=== PATIENT | female | born 1975 | race American Indian/Alaskan Native ===

== ENCOUNTER 2016-09-17 09:16 | Day surgery (SDC) | payer MEDICAID ==
[2016-09-14 09:50] LABS: Basophils % (Auto) 0.7 % (0.0-1.8); Eosinophils % (Auto) 4.5 % (0.0-4.3); Hematocrit 36.5 % (30.3-42.9); Hemoglobin 11.4 gm/dl (10.1-14.3); Mean Corpuscular HGB Conc 31 % (30-34); Mean Corpuscular Volume 79 fl (79-97); Platelet Count 321 K/mm3 (140-440); Red Blood Count 4.63 M/mm3 (3.65-5.03); White Blood Count 8.2 K/mm3 (4.5-11.0)
[2016-09-14 09:51] LABS: Mean Corpuscular Hemoglobin 25 pg (28-32); Red Cell Distribution Width 22.9 % (13.2-15.2)
--- NOTE | 2016-09-14 13:12 | Anesthesia Consultation ---
Anesthesia Consult and Med Hx Date of service: 09/17/16 - Airway Anesthetic Teeth Evaluation: Good ROM Head & Neck: Adequate Mental/Hyoid Distance: Adequate Mallampati Class: Class II Intubation Access Assessment: Probably Good - Pulmonary Exam CTA: Yes - Cardiac Exam Cardiac Exam: RRR - Pre-Operative Health Status ASA Pre-Surgery Classification: ASA2 Proposed Anesthetic Plan: General Nerve Block: PECS - Pulmonary Hx Smoking: No Hx Sleep Apnea: No (BAYLEE PRE SCREEN LOW RISK) - Cardiovascular System Hx Hypertension: Yes (WITH PREG ONLY) Hx Heart Murmur: Yes (LEAKY HEART VALVE WITH ) - Central Nervous System Hx Back Pain: Yes - Endocrine Hx Renal Disease: No Hx Cirrhosis: No Hx Insulin Dependent Diabetes: No Hx Hypothyroidism: No - Hematic Hx Anemia: Yes - Other Systems Hx Cancer: No Hx Obesity: Yes
[~2016-09-17 09:16] MED LIST: ANCEF/STERILE WATER 2 GM/20 ML IV NR; LACTATED RINGERS 1,000 ML IV SCH; NEURONTIN PO NR; PEPCID PO NR; SUBLIMAZE IV SCH; VERSED IV NR
[2016-09-17] MEDS ORDERED: NACL BACTERIOSTATIC INFILTRATI ONE (10:08)
[2016-09-17] MEDS ORDERED: DIPRIVAN 10 MG/ML IV ONE ×2 (10:16→12:52)
[2016-09-17] MEDS ORDERED: DILAUDID ONE ×2 (10:17→13:01)
[2016-09-17] MEDS ORDERED: XYLOCAINE MPF 2% ONE (11:34)
--- NOTE | 2016-09-17 11:39 | Anesthesia Day of Surgery ---
Anesthesia Day of Surgery - Day of Surgery Patient Examined: Yes Patient H&P Reviewed: Yes Patient is NPO: Yes
[2016-09-17] MEDS ORDERED: ZOFRAN ONE (12:41)
[2016-09-17] MEDS ORDERED: DECADRON ONE (12:41)
[2016-09-17] MEDS ORDERED: NORMODYNE IV ONE (12:53)
[2016-09-17] MEDS ORDERED: NACL 0.9% IR ONE (13:26)
[2016-09-17] MEDS: DILAUDID IV PRN ×2 (14:55→15:15)
[2016-09-17] MEDS ORDERED: VERSED IV ONE (14:56)
[2016-09-17] MEDS ORDERED: DEMEROL ONE (15:01)
[2016-09-17] MEDS ORDERED: DEMEROL IV PRN (15:05)
--- NOTE | 2016-09-17 15:46 | Post Anesthesia Evaluation ---
- Post Anesthesia Evaluation Patient Participated: Yes Airway Patent: Yes Stable Respiratory Function: Yes Nausea/Vomiting: No Temp > 96.8F: Yes Pain Manageable: Yes Adequeate Hydration: Yes Anesthesia Complications: No Block Receding Appropriately: Not Applicable Patient on Ventilator: No
[2016-09-17 17:00] VITALS: BP 124/80
--- NOTE | 2016-09-17 17:37 | Operative Report ---
PREOPERATIVE DIAGNOSIS: Macromastia. POSTOPERATIVE DIAGNOSIS: Macromastia. PROCEDURE: Bilateral reduction mammoplasty. SURGEON: Aj Kiran MD MANAGER ANDROID: Diogenes Godinez CSA. FINDINGS: 1020 gm removed from the right breast, 700 gm removed from the left breast. DESCRIPTION OF PROCEDURE: The patient was brought to the operating room and placed on the table in supine position. Following administration of general anesthesia, bilateral breasts were prepped with Betadine solution, draped in usual sterile manner. A #10 blade scalpel was used to make a circumareolar skin incision followed by de-epithelization of inferior dermal pedicle. Modified Santiago pattern skin markings were incised with scalpel, deepened through subcutaneous fat and breast tissue using the electrocautery. Skin flaps were raised in standard manner as was fashioning of an inferior central mound pedicle. Breast tissue was resected and sent to pathology as specimen. Hemostasis controlled using electrocautery. Skin flaps were closed over 10-mm Bjorn drain using interrupted and running subcuticular 2-0 Monocryl sutures. Mastisol, Steri-Strips, and sterile dressings applied. The patient tolerated the procedure well and returned to recovery room in stable condition. JOB# [id number] FTW/NTS
== END 2016-09-17 16:50 | disposition home or self-care (01) ==
LOC: OR 09:16
PROVIDERS: ATTEND Plastic Surgery
DX: N62 Hypertrophy of breast (principal); I10 Essential (primary) hypertension; D64.9 Anemia, unspecified; E66.9 Obesity, unspecified; Z68.34 Body mass index [BMI] 34.0-34.9, adult; Z98.51 Tubal ligation status; Z83.3 Family history of diabetes mellitus; Z82.3 Family history of stroke; Z82.49 Family history of ischemic heart disease and other diseases of the circulatory system
CPT/HCPCS: 19318; 36415; 84703; 85025; 88305; J0690; J1100; J1170; J2175; J2250; J2405; J2704; J7120